=== PATIENT | male | born 1970 | race Caucasian/White ===

== ENCOUNTER 2017-01-20 13:56 | Emergency (ER) | payer OTHER ==
[2017-01-20 14:05] VITALS: RESP 18
--- NOTE | 2017-01-20 14:55 | EDPHY ---
H & P Stated Complaint: Anxiety, Chest Pain Time Seen by Provider: 01/20/17 14:54 HPI/ROS: CHIEF COMPLAINT: Chest discomfort, anxiety HISTORY OF PRESENT ILLNESS: The patient is a 47 y/o male complaining of frequent episodes of chest and left arm discomfort for one month. He has had two episodes of waking up in the middle of the night and feeling short of breath, patient felt a might represent a panic attack or sleep apnea. Today he started to have increased anxiety at his job. While at lunch, he reports chest discomfort, shortness of breath, dizziness, lightheadedness. Due to his job he has felt more anxious for the past year, but his anxiety has recently increased. He is currently feeling lightheaded and dizzy only. Has had no syncope. No diaphoresis with his chest discomfort. No radiation of the pain. Denies history of hypertension, familial history of CAD, swelling in his legs, alcohol or tobacco use. He admits to history of anxiety and depression, but has not seen a therapist or psychiatrist recently. Denies suicidal or homicidal ideations. Denies hallucinations. No fever, chills, palpitations, vomiting, diarrhea, urinary complaints, headache. REVIEW OF SYSTEMS: Aside from elements discussed in the HPI, a comprehensive 10-point review of systems was reviewed and is negative. PAST MEDICAL HISTORY: Depression, tonsillectomy, cholecystectomy SOCIAL HISTORY: Friend at bedside, lives in [place], works for [employer] VITAL SIGNS: BP: 123/72 others reviewed by me GENERAL: Tearful. Well-developed, well-nourished, resting comfortably in no respiratory distress. HEENT: Atraumatic. Eyes: No icterus, no injection. Mouth: moist mucous membranes. No erythema or lesions. Neck: supple with no adenopathy. LUNGS: Clear to auscultation bilaterally, no wheezes, rhonchi or rales. CARDIAC: Regular rate and rhythm, no rubs, murmurs or gallops. ABDOMEN: Soft, nontender, nondistended, bowel sounds normal. BACK: No CVA tenderness. EXTREMITIES: No trauma. No edema. Range of motion is normal throughout. NEURO: Alert and oriented, grossly nonfocal. SKIN: Warm and dry, no rash. PSYCHIATRIC: Normal mentation, no agitation. Portions of this note were transcribed by a medical receptionist assistant. I personally performed a history, physical exam, medical decision making, and confirmed accuracy of information the transcribed note. - Personal History Current Tetanus Diphtheria and Acellular Pertussis (TDAP): No - Medical/Surgical History Hx Asthma: No Hx Chronic Respiratory Disease: No Hx Diabetes: No Hx Cardiac Disease: No Hx Renal Disease: No Hx Cirrhosis: No Hx Alcoholism: No Hx HIV/AIDS: No Hx Splenectomy or Spleen Trauma: No Other PMH: SGY: Gallbladder, Tonsils, [place] Teeth - Social History Smoking Status: Never smoked Constitutional: Initial Vital Signs Temperature (C) 36.7 C 01/20/17 14:00 Heart Rate 78 01/20/17 14:00 Respiratory Rate 18 01/20/17 14:00 Blood Pressure 123/72 H 01/20/17 14:00 O2 Sat (%) 96 01/20/17 14:00 O2 Delivery Mode Room Air Allergies/Adverse Reactions: erythromycin base [From Erythrocin] Allergy (Verified 01/20/17 14:00) Sulfa (Sulfonamide Antibiotics) Allergy (Verified 01/20/17 14:00) Home Medications: Medication Instructions Recorded NK [No Known Home Meds] 01/20/17 Medical Decision Making - Diagnostics EKG Interpretation: 12-LEAD EKG: Please see the full report in [facility]. My interpretation: Normal sinus rhythm with a rate of 64 Imaging Results: Impression: No acute pulmonary disease. Dictated By: Mann Mccall Imaging: I viewed and interpreted images myself ED Course/Re-evaluation: The patient is a 47 y/o male presenting with one month of frequent episodes of chest and left arm discomfort. Recently, he has been more anxious than usual. He is tearful at times during the exam, but his physical exam is normal. He would like to talk with a therapist or psychiatrist. 1457: EKG interpreted as normal sinus rhythm. 1510: Patients chest x-ray is normal. Labs reassuring. Doubt ACS but will need follow up. Suspect anxiety and has been given resources. 1637: Reassessed patient and discussed imaging and laboratory results. Case Management has provided him resources for his anxiety and depression. Return precautions provided; patient is comfortable with this plan. Differential Diagnosis: After history and physical examination, the differential for chest pain was considered, including but not limited to, myocardial ischemia, acute coronary syndrome, pulmonary embolus, chest wall pain, anxiety, pleural inflammation and pulmonary infectious causes. - Data Points Laboratory Results: Laboratory Results 01/20/17 15:35 01/20/17 15:35 Medications Given: Discontinued Medications Sodium Chloride (Ns) 500 mls @ 1,000 mls/hr IV EDNOW ONE PRN Reason: Protocol Stop: 01/20/17 15:40 Last Admin: 01/20/17 15:53 Dose: 500 mls Departure - Departure Disposition: Home, Routine, Self-Care Clinical Impression: Lightheaded Chest pain Qualifiers: Chest pain type: unspecified Qualified Code(s): R07.9 - Chest pain, unspecified Condition: Good Instructions: Lightheadedness (ED), Anxiety (ED) Additional Instructions: Please follow up with her primary care physician within the next 1-2 days for further evaluation. I see no evidence of a cardiac etiology for your chest discomfort. You been given resources regarding therapist another providers for anxiety and depression in the [facility]. If you develops severe chest pain, palpitations, fainting, significant shortness of breath, swelling in her legs, or other concerns, please return to the emergency department or seek care urgently. Referrals: NOT,SURE [Other] - As per Instructions Report Scribed for: Ana M Canchola Report Scribed by: Saritha Rahman Date of Report: 01/20/17 Time of Report: 14:54
--- NOTE | 2017-01-20 14:58 | CPEKG ---
Heart Rate: 64 RR Interval: 938 P-R Interval: 152 QRSD Interval: 80 QT Interval: 384 QTC Interval: 396 P Panacea: 67 QRS Panacea: -29 T Wave Panacea: 52 EKG Severity - OTHERWISE NORMAL ECG - EKG Impression: SINUS RHYTHM EKG Impression: BORDERLINE LEFT AXIS DEVIATION Electronically Signed By: Ana M Canchola 20-Jan-2017 23:14:58
[2017-01-20] MEDS ORDERED: NS 500 ML IV ONE (15:11)
[2017-01-20 15:52] LABS: % IMMATURE GRANULYOCYTES 0.3 % (0.0-1.1); ABSOLUTE IMMATURE GRANULOCYTES 0.02 10^3/uL (0.00-0.10); ADD DIFF? NO; ADD MORPH? NO; ADD SCAN? NO; ATYPICAL LYMPHOCYTE FLAG 0 (0-99); FRAGMENT RBC FLAG 20 (0-99); HEMATOCRIT 43.9 % (40.0-51.0); HEMOGLOBIN 15.4 g/dL (13.7-17.5); LEFT SHIFT FLG 0 (0-99); LIPEMIA HEMOLYSIS FLAG 90 (0-99); MEAN CELL HEMOGLOBIN 30.6 pg (27.9-34.1); MEAN CELL HEMOGLOBIN CONCENTR. 35.1 g/dL (32.4-36.7); MEAN CELL VOLUME 87.1 fL (81.5-99.8); MEAN PLATELET VOLUME 10.9 fL (8.7-11.7); PLATELET CLUMPS FLAG 0 (0-99); PLATELET COUNT 170 10^3/uL (150-400); RED BLOOD CELL COUNT 5.04 10^6/uL (4.40-6.38); RED CELL DISTRIBUTION WIDTH 12.6 % (11.5-15.2)
[2017-01-20 16:01] LABS: ANION GAP 13 mEq/L (8-16); CALCIUM 9.2 mg/dL (8.5-10.4); CARBON DIOXIDE 24 mEq/l (22-31); CHLORIDE 102 mEq/L (97-110); GLOMERULAR FILTRATION RATE > 60; GLUCOSE 113 mg/dL (70-100); POTASSIUM 3.8 mEq/L (3.5-5.2); SODIUM 139 mEq/L (134-144)
[2017-01-20 16:14] LABS: TROPONIN I < 0.012 ng/mL (0.000-0.034)
[2017-01-20 17:00] VITALS: BP 134/80; PULSE 61; TEMP 98.4; O2SAT 97
== END 2017-01-20 17:01 | disposition home or self-care (01) ==
DX: R07.9 Chest pain, unspecified (principal); E86.9 Volume depletion, unspecified; R42 Dizziness and giddiness